=== PATIENT | male | born 1995 | race African-American/Black ===

== ENCOUNTER 2018-06-30 18:05 | Emergency (ER) | payer OTHER ==
[~2018-06-30] VITALS: Ht 167.6 cm; Wt 59.0 kg
[2018-06-30 20:00] VITALS: BP 116/59
== END 2018-06-30 20:05 | disposition home or self-care (01) ==
LOC: ER 18:05
DX: S80.01XA Contusion of right knee, initial encounter (principal); M25.462 Effusion, left knee; Z88.0 Allergy status to penicillin; W22.8XXA Striking against or struck by other objects, initial encounter; Y92.89 Other specified places as the place of occurrence of the external cause; Y93.89 Activity, other specified; Y99.8 Other external cause status